=== PATIENT | male | born 1990 ===

== ENCOUNTER 2020-10-30 00:29 | Emergency (ER) | payer BC ==
[2020-10-30] MEDS ORDERED: NA CHLORIDE 0.9% 1,000 ML ONE ×2 (00:52→03:10)
[2020-10-30] MEDS ORDERED: LIDOCAINE 1% W/EPI 1:100,000 MDV 20 ML VIAL ONE (01:12)
--- NOTE | 2020-10-30 02:45 | ER ---
Nurse's Notes [facility] Name: Siva Sanders Age: 30 yrs Sex: Male : 1990 Arrival Date: 10/30/2020 Time: 00:35 Bed 4 Private MD: Diagnosis: Fracture of sixth cervical vertebra-unstable - bilateral lamina;Fracture of seventh cervical vertebra-unstable - bilateral lamina;Other fracture of first thoracic vertebra-compression Presentation: 10/30 00:35 Chief complaint: EMS states: sleeping on top of a bunk bed he roll over and fell down rr5 approximate 5 FT height. hit the top of his head to the toilet bowl, sustained lacerated wound on top of the head, no LOC. he also complained of pain mid back area. BP 82/52 mmHg BS 113mg/dl. 00:35 Coronavirus screen: Client denies travel out of the [place] in the last 14 days. At this rr5 time, the client does not indicate any symptoms associated with coronavirus-19. Ebola Screen: Patient negative for fever greater than or equal to 101.5 degrees Fahrenheit, and additional compatible Ebola Virus Disease symptoms Patient denies exposure to infectious person. Patient denies travel to an Ebola-affected area in the 21 days before illness onset. Initial Sepsis Screen: Does the patient meet any 2 criteria? No. Patient's initial sepsis screen is negative. Does the patient have a suspected source of infection? No. Patient's initial sepsis screen is negative. Risk Assessment: Do you want to hurt yourself or someone else? Patient reports no desire to harm self or others. Onset of symptoms was October 30, 2020. Care prior to arrival: Cervical collar in place. 00:35 Method Of Arrival: EMS: [facility] rr5 00:35 Acuity: NGHIA 2 rr5 00:35 Care prior to arrival: Cervical collar in place. rr5 00:36 Transition of care: ab fdc assisted by 2 officer. patient is on handcuffed. rr5 00:36 Mechanism of Injury: Fall from standing position. rr5 00:36 Trauma event details: Injury occurred in the [facility], Injury occurred: at rr5 home. Injury occurred: October 30, 2020. Trauma Activation: Alert Physician: ED Physician; Name: dr. white; Notified At: 00:38; Arrived At: 00:38 Physician: General Surgeon; Name: ; Notified At: 00:38; Arrived At: Physician: Radiology; Name: bautista reese; Notified At: 00:38; Arrived At: 00:43 Physician: Respiratory; Name: ; Notified At: 00:38; Arrived At: Physician: Lab; Name: ; Notified At: 00:38; Arrived At: Historical: - Allergies: 00:35 No Known Allergies; rr5 - Home Meds: 00:35 for anxiety medication [Active]; rr5 - PMHx: 00:35 Anxiety; rr5 - PSHx: 00:35 multiple VSD heart repair; rr5 - Immunization history:: Adult Immunizations up to date. - Social history:: Patient/guardian denies using alcohol, street drugs, The patient lives with family, Smoking status: unknown Patient/guardian denies using alcohol, street drugs. - Immunization history: Last tetanus immunization: unknown. - Family history:: not pertinent. Screenin:36 Fall Risk Fall in past 12 months (25 points). IV access (20 points). Total [place] Fall rr5 Scale indicates High Risk Score (45 or more points). Fall prevention measures have been instituted. Side Rails Up X 2 Placed Close to Nursing Station Frequent Obs/Assessments Occuring As available patient and family educated on Fall Prevention Program and Strategies. 00:42 Abuse screen: Denies threats or abuse. Denies injuries from another. Nutritional rr5 screening: No deficits noted. Tuberculosis screening: No symptoms or risk factors identified. Fall risk At risk due to Intervention for positive screen: ED Physician notified, instructed to call for assist when getting up, side rails up. Exposure risk/Travel Screening: None identified. Primary Survey: 00:35 NO uncontrolled hemorrhage observed. A: The patient is alert. Airway: patent, Oral rr5 cavity: clear, gag reflex present, Trachea midline. Breathing/Chest: Respiratory pattern: regular, Respiratory effort: spontaneous, unlabored, Breath sounds: clear, bilaterally. Chest inspection: symmetrical rise and fall of the chest. Circulation: Pulses: palpable right radial artery and left radial artery. Disability Alert. Exposure/Environment: There is no evidence of uncontrolled external bleeding. Obvious injury(ies) are noted at this time: lacerated wound top of the head. 01:35 Reassessment Airway Airway Patent Breathing/Chest Respiratory pattern Regular rr5 Respiratory effort Spontaneous Unlabored Circulation Pulses Palpable Disability Alert. Secondary Survey: 00:35 HEENT: Head Other lacerated wound Face No injury/deformity Eyes: No injury or deformity rr5 noted. to bilateral eyes. Ears: clear bilaterally. Nose: clear to bilateral nares. Throat: is clear with gag reflex present. Gastrointestinal: Abdomen is soft. : No signs and/or symptoms were reported regarding the genitourinary system. Musculoskeletal: Capillary refill < 3 seconds, Reports pain in back. 00:35 Injury Description: Laceration sustained to top of head. rr5 Assessment: 00:35 General: Appears in no apparent distress. Behavior is calm, cooperative, drowsy. Pain: rr5 Complains of pain in top of head. Neuro: Level of Consciousness is awake, alert, obeys commands, Oriented to person, place, time. Cardiovascular: Capillary refill < 3 seconds Patient's skin is warm and dry. Respiratory: Airway is patent Respiratory effort is even, unlabored, Respiratory pattern is regular, symmetrical. Derm: Skin is intact, is healthy with good turgor, Skin temperature is warm Wound noted top of head Wound is lacerated wound. 00:35 Musculoskeletal: Capillary refill < 3 seconds, Reports pain in thoracic area and lumbar rr5 area. 02:05 Reassessment: provider explained to patient the result of CTscan and explained needs to rr5 be transfer. [facility] correctional management "justice" report given. 02:54 Reassessment: Patient appears in no apparent distress at this time. instructed not to rr5 move his neck and explained the complications of spinal cord injury. 03:10 Reassessment: confirm to provider will not suture the lacerated wound. with verbal rr5 order to do wound dressing. 03:15 Reassessment: Patient appears in no apparent distress at this time. Patient and/or rr5 family updated on plan of care and expected duration. Pain level reassessed. report given to caro from [facility]. 04:20 Reassessment: Patient appears in no apparent distress at this time. No changes from rr5 previously documented assessment. awaiting for EMS; voided freely. 05:30 Reassessment: Patient appears in no apparent distress at this time. Patient and/or rr5 family updated on plan of care and expected duration. Pain level reassessed. awaiting for EMS transport no complaints made. 06:48 Reassessment: Patient appears in no apparent distress at this time. Patient is alert, rr5 oriented x 3, equal unlabored respirations, skin warm/dry/pink. report given to [facility] awake alert vital signs taken and recorded. accompanied by fdc offcer. Vital Signs: 00:35 BP 80 / 66; Pulse 65; Resp 16; Temp 98; Pulse Ox 98% ; Weight 84.37 kg; Height 5 ft. 9 rr5 in. (175.26 cm); Pain 8/10; 01:30 BP 96 / 72; Pulse 62; Resp 18; Pulse Ox 98% ; rr5 01:57 BP 110 / 69; Pulse 75; Resp 18; Pulse Ox 100% on R/A; mg2 02:55 BP 105 / 69; Pulse 73; Resp 17; Pulse Ox 98% ; rr5 03:12 BP 114 / 68; Pulse 76; Resp 18; Pulse Ox 97% on R/A; mg2 05:34 BP 123 / 74; Pulse 71; Resp 18; Pulse Ox 95% on R/A; mg2 06:48 BP 116 / 74; Pulse 70; Resp 16; Pulse Ox 99% ; rr5 00:35 Body Mass Index 27.47 (84.37 kg, 175.26 cm) rr5 [place]ora Coma Score: 00:35 Eye Response: spontaneous(4). Verbal Response: oriented(5). Motor Response: obeys rr5 commands(6). Total: 15. 01:30 Eye Response: spontaneous(4). Verbal Response: oriented(5). Motor Response: obeys rr5 commands(6). Total: 15. 02:56 Eye Response: spontaneous(4). Verbal Response: oriented(5). Motor Response: obeys rr5 commands(6). Total: 15. 03:12 Eye Response: spontaneous(4). Verbal Response: oriented(5). Motor Response: obeys mg2 commands(6). Total: 15. 05:34 Eye Response: spontaneous(4). Verbal Response: oriented(5). Motor Response: obeys mg2 commands(6). Total: 15. 06:48 Eye Response: spontaneous(4). Verbal Response: oriented(5). Motor Response: obeys rr5 commands(6). Total: 15. Trauma Score (Adult): 00:35 Eye Response: spontaneous(1); Verbal Response: oriented(1); Motor Response: obeys rr5 commands(2); Systolic BP: > 89 mm Hg(4); Respiratory Rate: 10 to 29 per min(4); [place] Score: 15; Trauma Score: 12 01:30 Eye Response: spontaneous(1); Verbal Response: oriented(1); Motor Response: obeys rr5 commands(2); Systolic BP: > 89 mm Hg(4); Respiratory Rate: 10 to 29 per min(4); [place] Score: 15; Trauma Score: 12 02:56 Eye Response: spontaneous(1); Verbal Response: oriented(1); Motor Response: obeys rr5 commands(2); Systolic BP: > 89 mm Hg(4); Respiratory Rate: 10 to 29 per min(4); [place] Score: 15; Trauma Score: 12 03:12 Eye Response: spontaneous(1); Verbal Response: oriented(1); Motor Response: obeys mg2 commands(2); Systolic BP: > 89 mm Hg(4); Respiratory Rate: 10 to 29 per min(4); [place] Score: 15; Trauma Score: 12 05:34 Eye Response: spontaneous(1); Verbal Response: oriented(1); Motor Response: obeys mg2 commands(2); Systolic BP: > 89 mm Hg(4); Respiratory Rate: 10 to 29 per min(4); [place] Score: 15; Trauma Score: 12 06:48 Eye Response: spontaneous(1); Verbal Response: oriented(1); Motor Response: obeys rr5 commands(2); Systolic BP: > 89 mm Hg(4); Respiratory Rate: 10 to 29 per min(4); [place] Score: 15; Trauma Score: 12 ED Course: 00:35 Patient arrived in ED. rr5 00:35 Patient maintains SpO2 saturation greater than 95% on room air. Thermoregulation: warm rr5 blanket given to patient. 00:36 Severo Moreira MD is Attending Physician. ma2 00:39 Triage completed. rr5 00:41 Arm band placed on right wrist. rr5 00:43 Patient has correct armband on for positive identification. Bed in low position. Call rr5 light in reach. Pulse ox on. NIBP on. 00:43 Maintain EMS IV. Dressing intact. Good blood return noted. Site clean \\T\\ dry. Gauge \\T\\ rr 5 site: g18 right AC. 00:52 Krunal Ramesh, RN is Primary Nurse. rr5 01:22 CT Traumagram (Head C Spine CAP W Con) In Process Unspecified. EDMS 02:30 COVID swab sent to lab. rr5 02:40 Wound care: to laceration located on top of head was cleaned with dressed with rr5 Neosporin, 4X4s, done by mally radiology ct technologist\\E\\, Patient tolerated well. 02:58 No provider procedures requiring assistance completed. Patient transferred, IV remains rr5 in place. intact, No redness/swelling at site. Administered Medications: 00:40 Drug: NS 0.9% 1000 ml Route: IV; Rate: 1000 ml; Site: right antecubital; rr5 03:16 Follow up: Response: No adverse reaction; IV Status: Completed infusion; IV Intake: rr5 1000ml 02:49 Not Given (Physician Discretion): Lidocaine-Epinephrine -1%: (1:100,000) 20 ml 20 ml rr5 Infiltration once; to bedside Intake: 03:12 PO: 0ml; Total: 0ml. mg2 03:16 IV: 1000ml; Total: 1000ml. rr5 Outcome: 02:45 ER care complete, transfer ordered by . ma2 02:58 Patient's length of stay was extended due to receiving facility on divert. awaiting [facility] rr5 [facility] due to 03:16 Condition: stable rr5 03:16 Instructed on the need for transfer. 06:48 Transferred by ground EMS to [facility], Transfer form rr5 completed. 06:55 Patient left the ED. mg2 Signatures: Dispatcher [employer] EDMS Severo Moreira MD MD ma2 Gal Lai RN RN mg2 Krunal Ramesh, PAUL RN rr5
--- NOTE | 2020-10-30 02:45 | EDPHYS ---
Physician Documentation [facility] Name: Siva Sanders Age: 30 yrs Sex: Male : 1990 Arrival Date: 10/30/2020 Time: 00:35 Bed 4 Private MD: ED Physician Severo Moreira HPI: 10/30 00:39 This 30 yrs old Male presents to ER via EMS with complaints of Fall Injury. ma2 00:39 Details of fall: The patient fell from a height, punk bed, head hit the toilet. Onset: ma2 The symptoms/episode began/occurred suddenly, 0.5 hour(s) ago. Severity of symptoms: At their worst the symptoms were mild, in the emergency department the symptoms are unchanged. The patient has not experienced similar symptoms in the past. Historical: - Allergies: 00:35 No Known Allergies; rr5 - Home Meds: 00:35 for anxiety medication [Active]; rr5 - PMHx: 00:35 Anxiety; rr5 - PSHx: 00:35 multiple VSD heart repair; rr5 - Immunization history:: Adult Immunizations up to date. - Social history:: Patient/guardian denies using alcohol, street drugs, The patient lives with family, Smoking status: unknown Patient/guardian denies using alcohol, street drugs. - Immunization history: Last tetanus immunization: unknown. - Family history:: not pertinent. ROS: 00:39 Constitutional: Negative for fever, chills, and weight loss. ma2 00:39 All other systems are negative. Exam: 00:39 Constitutional: This is a well developed, well nourished patient who is awake, alert, ma2 and in no acute distress. Head/Face: scalp linearl lac deep, 10 inchesNormocephalic, atraumatic. ENT: Nares patent. No nasal discharge, no septal abnormalities noted. Tympanic membranes are normal and external auditory canals are clear. Oropharynx with no redness, swelling, or masses, exudates, or evidence of obstruction, uvula midline. Mucous membranes moist. Neck: Trachea midline, no thyromegaly or masses palpated, and no cervical lymphadenopathy. Supple, full range of motion without nuchal rigidity, or vertebral point tenderness. No Meningismus. Chest/axilla: Normal chest wall appearance and motion. Nontender with no deformity. No lesions are appreciated. Cardiovascular: Regular rate and rhythm with a normal S1 and S2. No gallops, murmurs, or rubs. Normal PMI, no JVD. No pulse deficits. Respiratory: Lungs have equal breath sounds bilaterally, clear to auscultation and percussion. No rales, rhonchi or wheezes noted. No increased work of breathing, no retractions or nasal flaring. Abdomen/GI: Soft, non-tender, with normal bowel sounds. No distension or tympany. No guarding or rebound. No evidence of tenderness throughout. Back: No spinal tenderness. No costovertebral tenderness. Full range of motion. Skin: Warm, dry with normal turgor. Normal color with no rashes, no lesions, and no evidence of cellulitis. MS/ Extremity: Pulses equal, no cyanosis. Neurovascular intact. Full, normal range of motion. Neuro: Awake and alert, GCS 15, oriented to person, place, time, and situation. Cranial nerves II-XII grossly intact. Motor strength 5/5 in all extremities. Sensory grossly intact. Cerebellar exam normal. Normal gait. Vital Signs: 00:35 BP 80 / 66; Pulse 65; Resp 16; Temp 98; Pulse Ox 98% ; Weight 84.37 kg; Height 5 ft. 9 rr5 in. (175.26 cm); Pain 8/10; 01:30 BP 96 / 72; Pulse 62; Resp 18; Pulse Ox 98% ; rr5 01:57 BP 110 / 69; Pulse 75; Resp 18; Pulse Ox 100% on R/A; mg2 02:55 BP 105 / 69; Pulse 73; Resp 17; Pulse Ox 98% ; rr5 03:12 BP 114 / 68; Pulse 76; Resp 18; Pulse Ox 97% on R/A; mg2 05:34 BP 123 / 74; Pulse 71; Resp 18; Pulse Ox 95% on R/A; mg2 06:48 BP 116 / 74; Pulse 70; Resp 16; Pulse Ox 99% ; rr5 00:35 Body Mass Index 27.47 (84.37 kg, 175.26 cm) rr5 Leonora Coma Score: 00:35 Eye Response: spontaneous(4). Verbal Response: oriented(5). Motor Response: obeys rr5 commands(6). Total: 15. 01:30 Eye Response: spontaneous(4). Verbal Response: oriented(5). Motor Response: obeys rr5 commands(6). Total: 15. 02:56 Eye Response: spontaneous(4). Verbal Response: oriented(5). Motor Response: obeys rr5 commands(6). Total: 15. 03:12 Eye Response: spontaneous(4). Verbal Response: oriented(5). Motor Response: obeys mg2 commands(6). Total: 15. 05:34 Eye Response: spontaneous(4). Verbal Response: oriented(5). Motor Response: obeys mg2 commands(6). Total: 15. 06:48 Eye Response: spontaneous(4). Verbal Response: oriented(5). Motor Response: obeys rr5 commands(6). Total: 15. Trauma Score (Adult): 00:35 Eye Response: spontaneous(1); Verbal Response: oriented(1); Motor Response: obeys rr5 commands(2); Systolic BP: > 89 mm Hg(4); Respiratory Rate: 10 to 29 per min(4); [place] Score: 15; Trauma Score: 12 01:30 Eye Response: spontaneous(1); Verbal Response: oriented(1); Motor Response: obeys rr5 commands(2); Systolic BP: > 89 mm Hg(4); Respiratory Rate: 10 to 29 per min(4); [place] Score: 15; Trauma Score: 12 02:56 Eye Response: spontaneous(1); Verbal Response: oriented(1); Motor Response: obeys rr5 commands(2); Systolic BP: > 89 mm Hg(4); Respiratory Rate: 10 to 29 per min(4); [place] Score: 15; Trauma Score: 12 03:12 Eye Response: spontaneous(1); Verbal Response: oriented(1); Motor Response: obeys mg2 commands(2); Systolic BP: > 89 mm Hg(4); Respiratory Rate: 10 to 29 per min(4); [place] Score: 15; Trauma Score: 12 05:34 Eye Response: spontaneous(1); Verbal Response: oriented(1); Motor Response: obeys mg2 commands(2); Systolic BP: > 89 mm Hg(4); Respiratory Rate: 10 to 29 per min(4); [place] Score: 15; Trauma Score: 12 06:48 Eye Response: spontaneous(1); Verbal Response: oriented(1); Motor Response: obeys rr5 commands(2); Systolic BP: > 89 mm Hg(4); Respiratory Rate: 10 to 29 per min(4); [place] Score: 15; Trauma Score: 12 MDM: 00:36 Patient medically screened. md2 02:41 Differential diagnosis: closed head injury, contusion, fracture, laceration, sprain, ma2 strain. Data reviewed: vital signs, nurses notes. Counseling: I had a detailed discussion with the patient and/or guardian regarding: the historical points, exam findings, and any diagnostic results supporting the discharge/admit diagnosis, the presence of at least one elevated blood pressure reading (>120/80) during this emergency department visit, the need for outpatient follow up. Response to treatment: the patient's symptoms have markedly improved after treatment. 02:41 ED course: patient has c6, c7 unstable fracture and t4 compression frx, no spine md2 service available in our hospital will transfer for higher level of care accepted by [facility] dr. lovell. 10/30 01:00 Order name: CREATININE WHOLE BLOOD; Complete Time: 02:03 [facility] 10/30 00:37 Order name: CT Traumagram (Head C Spine CAP W Con) [facility] 10/30 04:14 Order name: SARS-COV-2 RT PCR [facility] 10/30 00:37 Order name: Gloves, Sterile; Complete Time: 01:04 md2 10/30 01:47 Order name: Dressing - Wound; Complete Time: 02:04 [facility] 10/30 02:45 Order name: Spinal Immobilization-Full; Complete Time: 02:54 [facility] Administered Medications: 00:40 Drug: NS 0.9% 1000 ml Route: IV; Rate: 1000 ml; Site: right antecubital; rr5 03:16 Follow up: Response: No adverse reaction; IV Status: Completed infusion; IV Intake: rr5 1000ml 02:49 Not Given (Physician Discretion): Lidocaine-Epinephrine -1%: (1:100,000) 20 ml 20 ml rr5 Infiltration once; to bedside Disposition: 10/30/20 02:45 Transfer ordered to [facility]. Diagnosis are Fracture of sixth cervical vertebra - unstable - bilateral lamina, Fracture of seventh cervical vertebra - unstable - bilateral lamina, Other fracture of first thoracic vertebra - compression. - Reason for transfer: Higher level of care. - Accepting physician is Dr. Lovell. - Condition is Stable. - Problem is new. - Symptoms are unchanged. Signatures: Dispatcher [employer] EDUT Severo Moreira MD MD ma2 Gal Lai, RN RN mg2 Krunal Ramesh RN RN rr5 Corrections: (The following items were deleted from the chart) 02:39 01:54 CORONAVIRUS+MR.LAB.BRZ ordered. EDMS EDMS 02:41 00:39 Wound Repair of 10cm ( 3.9in ) subcutaneous laceration to scalp. Linear shaped.. ma2 Distal neuro/vascular/tendon intact. Anesthesia: Local anesthetic administered with 10 mls of 1% lidocaine w/ Epi. Wound prep: Moderate cleansing with betadine. Skin closed with 10 1-0 Marks using simple sutures and sterile technique. Dressed with 4x4's. Patient tolerated well. md2 02:49 00:37 Dressing - Wound ordered. [facility] rr5 02:49 00:37 Setup Suture Tray ordered. md2 rr5 06:55 02:45 10/30/2020 02:45 Transfer ordered to [facility]. Diagnosis is Fracture of sixth mg2 cervical vertebra - unstable - bilateral lamina; Fracture of seventh cervical vertebra - unstable - bilateral lamina; Other fracture of first thoracic vertebra - compression. Reason for transfer: Higher level of care. Accepting physician is Dr. Lovell. Condition is Stable. Problem is new. Symptoms are unchanged. ma2
[2020-10-30 07:00] VITALS: TEMP 98
[2020-10-30 07:08] VITALS: BP 116/74; O2SAT 99
--- NOTE | 2020-10-30 12:46 | RAD REPORT ---
EXAM DESCRIPTION: ADDENDUM #1 Urgent finding reported to Dr. Moreira at 10/30/2020 1:23 AM CDT Electronically signed by: Kale Ramirez 10/30/2020 4:43 AM CDT End of Addendum EXAM DESCRIPTION: 1. CT of the head without contrast 2. CT of the cervical spine without contrast. 3. CT of the chest, abdomen, and pelvis with contrast. CLINICAL HISTORY: Fall/ COMPARISON: None available TECHNIQUE: Axial CT of the head obtained from the skull apex to the skull base without contrast. Axi al CT images of the cervical spine obtained from the skull base through the thoracic inlet. Sagittal and coronal reformatted images available. CT of the chest, abdomen, and pelvis obtained following the uncomplicated intravenous administration of iodinated contrast. Motion artifact of the cervical spin e. This exam was performed according to our departmental dose-optimization program, which includes au tomated exposure control, adjustment of the mA and/or kV according to patient size and/or use of iter ative reconstruction technique. FINDINGS: CT head: No acute intracranial hemorrhage identified. No mass, mass effect, shift of the midline, abnormal ext ra-axial fluid collection or CT evidence of acute ischemic change identified. The ventricular system is unremarkable. No acute abnormalities of the supratentorial white matter, basal ganglia, cerebell um, or brainstem. The visualized paranasal sinuses and the mastoids are clear. Laceration in the high scalp subcutaneou s soft tissues. No skull fracture identified. Visualized orbits and globes are unremarkable. Cervical CT: Bilateral mildly displaced fracture of the C6 posterior lamina with 1 mm anterolisthesis of C6 over C 7. No definite facet subluxation. Bilateral mildly displaced acute fractures of the C7 posterior lamina. The fractures appear to extend into the inferior aspect of the bilateral C7 articular facets with with anterior subluxation of the facets. There is 2 mm anterolisthesis of C7 over T1. There is an acute anterior compression fracture of T1. Approximately 20% loss of anterior vertebral b ayaka height. No definite posterior element involvement at this level. No definite retropulsion of frac ture fragments. Visualized skull base is intact. No fracture of the visualized facial bones. Visualized mastoid air c ells and paranasal sinuses are well aerated. No cervical lymphadenopathy. Chest: Thyroid: No abnormalities of the visualized thyroid. Great Vessels: Great vessels have normal anatomic configuration. Thoracic Aorta: No abnormalities of the thoracic aorta identified. Pulmonary arteries: No filling defects. Mild enlargement main pulmonary artery could be related to pu lmonary hypertension. Heart: No cardiomegaly, significant pericardial effusion, or coronary artery atherosclerosis prior me paulino sternotomy. Lymph Nodes: No enlarged mediastinal lymph nodes identified. Esophagus: No abnormalities of the esophagus identified Other: No additional findings. Lungs: Mild right basilar opacities. No confluent airspace consolidation. Pleura: No pleural effusion or pneumothorax. Trachea/Airways: No abnormalities of the visualized trachea or airways. Abdomen: Liver: The liver has normal size and density. No intrahepatic mass or biliary dilatation. Gallbladder: No calcified gallstones. Spleen, Pancreas, and Adrenal Glands: The spleen, pancreas, and adrenal glands are unremarkable. Kidneys: The kidneys have normal size and contour without evidence of solid mass or hydronephrosis. Vasculature: The aorta and IVC have normal caliber and position. The portal vein is patent. The pro ximal visceral and renal arteries are patent. Stomach: The stomach and duodenum have normal course. Other: No free intraperitoneal air. No free fluid or lymphadenopathy. Pelvis: Bladder: Urinary bladder is unremarkable. Bowel: No dilated loops of large or small bowel. Appendix: Normal appendix. Pelvis: Prostate is not enlarged. Bones: Multiple remote healed left rib fractures. No additional fractures do not detailed above ident ified. IMPRESSION: 1. No acute intracranial hemorrhage. 2. Bilateral mildly displaced fracture of the C6 posterior lamina with 1 mm anterolisthesis of C6 o ryan C7. 3. Bilateral mildly displaced acute fractures of the C7 posterior lamina. The fractures appear to e xtend into the inferior aspect of the bilateral C7 articular facets with anterior subluxation of the facets. 4. Acute anterior compression fracture of T1 with approximately 20% loss of anterior vertebral body height. 5. No evidence of solid organ injury. Electronically signed by: Kale Ramirez 10/30/2020 1:55 AM CDT Due to temporary technical issues with the PACS/Fluency reporting system, reports are being signed by the in house radiologists without review as a courtesy to insure prompt reporting. The interpreting radiologist is fully responsible for the content of the report.
== END 2020-10-30 06:55 | disposition short-term general hospital (02) ==
LOC: ER 00:29
PROC: 0HQ0XZZ Repair Scalp Skin, External Approach (ICD-10-PCS; principal; 2020-10-30)
DX: S12.590A Other displaced fracture of sixth cervical vertebra, initial encounter for closed fracture (principal); S12.690A Other displaced fracture of seventh cervical vertebra, initial encounter for closed fracture; S22.010A Wedge compression fracture of first thoracic vertebra, initial encounter for closed fracture; S01.01XA Laceration without foreign body of scalp, initial encounter; F41.9 Anxiety disorder, unspecified; Z20.822 Contact with and (suspected) exposure to COVID-19; W06.XXXA Fall from bed, initial encounter
CPT/HCPCS: 70450; 71260; 72125; 74177; 82565; 96360; 96361; 99285; G0390; J7030; Q9967; U0003